=== PATIENT | female | born 1965 | race Caucasian/White ===

== ENCOUNTER 2017-01-23 05:35 | Inpatient (IN) | payer OTHER, BC ==
[2017-01-06 13:01] VITALS: BMI 55.0
--- NOTE | 2017-01-06 13:29 | PAT Medication Instructions ---
Service Date January 06, 2017. Current Home Medication List Cyclobenzaprine Hcl (Flexeril), 10 MG PO DAILY PRN for muscle spasms Ibuprofen (Advil), 200-800 MG PO UD PRN for Pain Multiple Minerals W/ Vitamins (Citracal Plus), Unknown Dose PO UD Multivitamin (Multivitamin), 1 TAB PO QAM Tramadol (Ultram), 50 MG PO Q8H PRN for Pain Medication Instructions For Your Scheduled Surgery Ibuprofen (Advil), 200-800 MG PO UD PRN for Pain (patient will check with surgeon for instructions) - Hold the following medications the morning of surgery: Multiple Minerals W/ Vitamins (Citracal Plus), Unknown Dose PO UD Multivitamin (Multivitamin), 1 TAB PO QAM Cyclobenzaprine Hcl (Flexeril), 10 MG PO DAILY PRN for muscle spasms - Take the following medications the morning of surgery with a sip of water: Tramadol (Ultram), 50 MG PO Q8H PRN for Pain (can take up to four hours prior to surgery if needed) - Take the following medications as scheduled the night before surgery: Tramadol (Ultram), 50 MG PO Q8H PRN for Pain Cyclobenzaprine Hcl (Flexeril), 10 MG PO DAILY PRN for muscle spasms If you have any questions please call us at [phone] or [phone] ( Kitty) or [phone]
[2017-01-06 14:11] LABS: BASO % 0.3 %; BASO ABS # 0.02 K/uL (0-0.2); COMPLETE YES; EOS % 0.5 %; HEMATOCRIT 37.8 % (37-47); IG% 0.2 %; LYMPH % 32.2 %; LYMPH ABS # 1.93 K/uL (1.2-3.4); MEAN CELL VOLUME 87.1 fL (80-100); MEAN CORPUSCULAR HEMOGLOBIN 27.4 pg (25-34); MEAN CORPUSCULAR HGB CONC 31.5 g/dl (32-36); MEAN PLATELET VOLUME 9.2 fL (7.4-10.4); MONO % 10.2 %; NEUT % 56.6 %; PLATELET COUNT 237 K/uL (130-400); RED BLOOD COUNT 4.34 M/uL (4.2-5.4); WHITE BLOOD COUNT 5.99 K/uL (4.8-10.8)
[2017-01-06 14:12] LABS: URINE APPEARANCE CLEAR (CLEAR); URINE BILIRUBIN NEG (NEG); URINE COLOR YELLOW; URINE NITRITE NEG (NEG); URINE PH 6.5 (4.5-7.5); URINE SPECIFIC GRAVITY 1.009 (1.000-1.030); UROBILINOGEN NEG (NEG)
[2017-01-06 14:17] LABS: MANUAL MICROSCOPIC REQUIRED? NO; REVIEW REQ? NO
[2017-01-06 14:23] LABS: BUN/CREATININE RATIO 19.7 (10-20); CALCIUM 9.1 mg/dl (8.5-10.1); CREATININE 0.72 mg/dl (0.60-1.20); POTASSIUM 4.9 mmol/L (3.5-5.1)
--- NOTE | 2017-01-06 14:33 | DIAGNOSTIC IMAGING REPORT ---
CHEST PREADMISSION(PA/LAT) CLINICAL HISTORY: PAT preoperative evaluation COMPARISON STUDY: No previous studies for comparison. FINDINGS: The bones soft tissues and hemidiaphragms are normal. The cardiomediastinal silhouette is normal. The lungs are clear. The pulmonary vasculature is normal. IMPRESSION: Negative chest. Electronically signed by: Jem Rodríguez M.D. 01/06/2017 2:31 PM Dictated Date/Time: 01/06/2017 2:29 PM
[~2017-01-23] VITALS: Ht 157.5 cm; Wt 137.0 kg
[2017-01-23] VITALS (10 sets, daily range): BP systolic 102–154; BP diastolic 62–92; PULSE 65–92; TEMP 36.3–36.9; O2SAT 93–100; Ht 157.5 cm; Wt 137.0 kg
[~2017-01-23 05:35] MED LIST: CYCL10TA6 PO; IBUP-1050 PO; MULT-506 PO; MULT-663 PO; TRAM-10 PO
[2017-01-23] MEDS ORDERED: ACET-1256 PO (05:59)
[2017-01-23] MEDS ORDERED: LACTATED RINGER'S 1000ML 1,000 ML IV SCH (06:00)
[2017-01-23] MEDS ORDERED: CEFAZOLIN 3000 MG/65 ML D5W IV SCH (06:00)
[2017-01-23] MEDS ORDERED: FENTANYL CITRATE INJ 50 MCG/1 ML 2 ML VIAL ONE ×2 (06:32→07:49)
[2017-01-23] MEDS ORDERED: MIDAZOLAM HCL 1 MG/ML 2ML VIAL ONE (06:32)
[2017-01-23] MEDS ORDERED: BUPIVACAINE/EPINEPHRINE 0.5% MPF 1:200,000 30 ML VIAL ONE (06:53)
[2017-01-23] MEDS ORDERED: BACITRACIN 50000 UNIT VIAL ONE (06:53)
[2017-01-23] MEDS ORDERED: SODIUM CHLORIDE 0.9% PF 50 ML VIAL ONE (06:53)
--- NOTE | 2017-01-23 07:20 | History & Physical Bridge Note ---
H&P Re-Evaluation Bridge Note: I have examined the patient, reviewed the History & Physical and in the interval since the performance of the History & Physical I have noted the following changes of clinical significance: No changes noted
--- NOTE | 2017-01-23 07:21 | History and Physical ---
History & Physical Date Jan 23, 2017. Chief Complaint back and leg pain History of Present Illness The patient is a 51 year old female with complaints of Additional History Hepatic Disease: No Endocrine Disorder: No Kidney Disease: No Hypertension: No Heart Disease: No Bleeding Tendencies: No Infectious Diseases: No Allergies Coded Allergies: Codeine (Verified Adverse Reaction, Unknown, lip numbness/confusion, ) Home Medications Scheduled Multiple Minerals W/ Vitamins (Citracal Plus), Unknown Dose PO UD Multivitamin (Multivitamin), 1 TAB PO QAM Scheduled PRN Acetaminophen (Tylenol), 2 TAB PO Q6 PRN for Pain Cyclobenzaprine Hcl (Flexeril), 10 MG PO DAILY PRN for muscle spasms Ibuprofen (Advil), 200-800 MG PO UD PRN for Pain Tramadol (Ultram), 50 MG PO Q8H PRN for Pain Physical Examination Skin: warm/dry, no rash Eyes: normal inspection, EOMI, sclerae normal ENT: normal ENT inspection, pharynx normal Head: normocephalic, atraumatic Neck: supple, no adenopathy, trachea midline Respiratory/Chest: lungs clear, normal breath sounds, no respiratory distress Cardiovascular: regular rate, rhythm, no edema, no murmur Abdomen / GI: normal bowel sounds, non tender Back: normal inspection Extremities: normal inspection, normal range of motion Neurologic/Psych: no motor/sensory deficits, alert, normal reflexes, oriented x 3 Diagnosis lumbar stenosis Plan of Treatment decompression fusion L4-5
[2017-01-23] MEDS ORDERED: MEPERIDINE HCL 25 MG/ML CARP IV PRN (07:30)
[2017-01-23] MEDS ORDERED: ONDANSETRON INJ 2 MG/ML 2 ML VIAL IV PRN ×2 (07:30→09:30)
[2017-01-23] MEDS ORDERED: ATROPINE SULFATE 0.1 MG/ML 5ML SYR IV PRN (07:30)
[2017-01-23] MEDS ORDERED: FLUMAZENIL 0.1 MG/1 ML 10 ML VIAL IV PRN (07:30)
[2017-01-23] MEDS ORDERED: NALOXONE HCL 0.4 MG/1 ML VIAL/CARP IV PRN ×3 (07:30→09:30)
[2017-01-23] MEDS ORDERED: EpHEDrine SULFATE INJ 50 MG/ML AMP IV PRN (07:30)
[2017-01-23] MEDS ORDERED: LABETALOL HCL IV 5 MG/ML 20ML IV PRN (07:30)
[2017-01-23] MEDS ORDERED: HYDROmorphone INJ 2 MG/ML SYR/VIAL IV PRN (07:30)
[2017-01-23] MEDS ORDERED: PHENYLEPHRINE 100MCG/ML 5ML SYR IV PRN (07:30)
[2017-01-23] MEDS ORDERED: HYDROmorphone INJ 2 MG/ML SYR/VIAL ONE ×2 (07:49→09:14)
[2017-01-23] MEDS ORDERED: FLOSEAL HEMOSTATIC MATRIX 10ML TOP ONE (09:01)
[2017-01-23] MEDS ORDERED: PROPOFOL IV EMULSION 10 MG/ML 20 ML VIAL IV ONE (09:10)
[2017-01-23] MEDS ORDERED: DEXAMETHASONE SOD INJ 4 MG/ML VIAL ONE (09:10)
[2017-01-23] MEDS ORDERED: ROCURONIUM BROMIDE 10 MG/ML 5 ML VIAL ONE (09:10)
[2017-01-23] MEDS ORDERED: LIDOCAINE HCL 2% 2 ML VIAL (20MG/ML) ONE (09:10)
[2017-01-23] MEDS ORDERED: PHENYLEPHRINE 100MCG/ML 5ML SYR ONE (09:10)
[2017-01-23] MEDS ORDERED: KETOROLAC TROMETHAMINE 30 MG/ML VIAL ONE (09:16)
[2017-01-23] MEDS ORDERED: NEOSTIGMINE METHYLSULFATE 1 MG/ML 10ML VIAL ONE (09:16)
[2017-01-23] MEDS ORDERED: GLYCOPYRROLATE INJ 0.2 MG/ML VIAL ONE (09:16)
[2017-01-23] MEDS ORDERED: SODIUM CHLORIDE 0.9% 1000ML 1,000 ML IV SCH (09:16)
--- NOTE | 2017-01-23 09:16 | [facility] Operative Report ---
Operative Report Operative Date Jan 23, 2017. Pre-Operative Diagnosis Lumbar stenosis L4-5 Post-Operative Diagnosis same Procedure(s) Performed tlif Surgeon Dr. Caden Berger Polisher Eyeglass Frames Surgeon(s) Ivy Bhakta PA-C Estimated Blood Loss 250ml Findings stenosis Specimens None per surgeon I attest to the content of the Intraoperative Record and any orders documented therein. Any exceptions are noted below.
[2017-01-23] MEDS ORDERED: HYDROmorphone HCL 0.5MG/ML 50 ML CASSETTE ONE (09:27)
[2017-01-23] MEDS ORDERED: DO NOT ADMINISTER FLU VACCINE PRN ×3 (09:30)
[2017-01-23] MEDS ORDERED: ACETAMINOPHEN 500 MG TAB PO PRN (09:30)
[2017-01-23] MEDS ORDERED: LORAZEPAM INJ 0.5 MG in SYRINGE 0 ML IV PRN (09:30)
[2017-01-23] MEDS ORDERED: BISACODYL 10 MG SUPP PR PRN (09:30)
[2017-01-23] MEDS: FENTANYL CITRATE INJ 50 MCG/1 ML 2 ML VIAL IV PRN ×4 (09:30→09:45)
[2017-01-23] MEDS ORDERED: LORAZEPAM 0.5 MG TAB PO PRN (09:30)
[2017-01-23] MEDS ORDERED: hydrOXYzine HCL 25 MG TAB PO PRN (09:30)
[2017-01-23] MEDS ORDERED: MAGNESIUM HYDROXIDE SUSP 30 ML UDC PO PRN (09:30)
[2017-01-23] MEDS ORDERED: ALUMINUM/MAGNESIUM SUSP 30 ML UDC PO PRN (09:30)
[2017-01-23] MEDS ORDERED: ACETAMINOPHEN IV 100 ML IV PRN (09:30)
[2017-01-23] MEDS ORDERED: TRAMADOL HCL 50 MG TAB PO PRN (09:30)
[2017-01-23] MEDS ORDERED: SOD PHOSPHATE/SOD BIPHOSPHATE ENEMA 132 ML BTL PR PRN (09:30)
[2017-01-23] MEDS ORDERED: METOCLOPRAMIDE HCL INJ 5 MG/ML 2 ML VIAL IV PRN (09:30)
[2017-01-23] MEDS ORDERED: DO NOT ADMINISTER PNEUMOCOCCAL VACCINE PRN ×2 (09:30)
[2017-01-23] MEDS ORDERED: PROMETHAZINE HCL INJ 12.5 MG in SODIUM CHLORIDE 0.9% 50ML 50 ML IV PRN (09:30)
--- NOTE | 2017-01-23 09:35 | DIAGNOSTIC IMAGING REPORT ---
LUMBAR SPINE, INTRAOPERATIVE FLUOROSCOPY HISTORY: L4-5 decompression and fusion. FLUOROSCOPY TIME: 21 seconds. FINDINGS: Intraoperative fluoroscopy was provided for the lumbar spine. 2 fluoroscopic spot images were obtained. Posterior decompression fusion at L4-L5 with screws and rods. The hardware is intact. IMPRESSION: Fluoroscopy provided for a L4-L5 posterior decompression and fusion. Electronically signed by: Scar Craig M.D. 01/23/2017 9:34 AM Dictated Date/Time: 01/23/2017 9:33 AM
--- NOTE | 2017-01-23 10:27 | Anesthesiology Progress Note ---
Anesthesia Post Op Note Date & Time Jan 23, 2017 at 10:27 Vital Signs Pain Intensity: 3 Vital Signs Past 12 Hours Date Time Temp Pulse Resp B/P (MAP) Pulse Ox O2 Delivery O2 Flow Rate FiO2 01/23/17 10:15 63 14 130/76 100 Nasal Cannula 4 01/23/17 10:05 36.0 81 19 123/80 100 Nasal Cannula 4 01/23/17 09:55 74 18 133/73 100 Nasal Cannula 4 01/23/17 09:45 83 18 117/83 100 Mask 10 01/23/17 09:35 93 14 114/73 100 Mask 10 01/23/17 09:25 36.0 93 12 141/82 100 Mask 10 01/23/17 06:01 36.6 77 18 132/92 98 Room Air Notes Mental Status: alert / awake / arousable, participated in evaluation Pt Amnestic to Procedure: Yes Nausea / Vomiting: adequately controlled Pain: adequately controlled Airway Patency, RR, SpO2: stable & adequate BP & HR: stable & adequate Hydration State: stable & adequate Anesthetic Complications: no major complications apparent
[2017-01-23] MEDS: HYDROmorphone HCL 0.5MG/ML 50 ML CASSETTE IV PRN ×3 (10:38→22:54)
--- NOTE | 2017-01-23 11:00 | OPERATIVE REPORT ---
DATE OF OPERATION: 01/23/2017 PREOPERATIVE DIAGNOSES: Spinal stenosis, spondylolisthesis L4-L5. POSTOPERATIVE DIAGNOSES: Same. PROCEDURE PERFORMED: 1. Lumbar decompression, medial facetectomy and foraminotomies L3-L4, L4-L5. 2. Posterior spinal fusion L4-L5. 3. Placement posterior instrumentation using Orthros rods and screws L4-L5. 4. Interbody fusion L4-L5. 5. Placement of PEEK cage 12 x 22 mm at L4-L5. 6. Placement of locally harvested morcellized autograft in posterior gutters. 7. Placement of Infuse collagen sponge combined with Mastergraft in the posterior gutters and Courtney bone graft in the interbody space. SURGEON: Dr. Caden Berger. COLOR WORKER: Ivy Bhakta PA-C. Due to the complex nature of the procedure, the entire surgery was performed with the medical office assistant of DECLAN Mahoney. The emergency veterinary assistant, under direct supervision, was involved in the actual performance of all aspects of the surgical procedure including hemostasis, tissue retraction and incision, instrument management, patient positioning, and wound closure. ANESTHESIA: General. DISPOSITION: The patient awakened and taken to PACU in stable condition. HISTORY OF PATIENT'S PROBLEMS: This is a 51-year-old female who presents with above-mentioned diagnosis. After failing an extensive course of nonoperative care, elected to undergo the above-mentioned procedure. Risks, benefits, pros, cons, and alternatives were outlined in detail preoperatively. DESCRIPTION OF PROCEDURE: The patient was met with preoperatively, the case discussed and all questions were addressed. At that point the patient was taken back to operative suite and after undergoing successful general intubation by the department of anesthesia was placed in prone position on Dillan table atop Ruslan frame. All bony prominences were well padded and the eyes were inspected to ensure there was no external pressure placed upon them. At this point, the lumbar spine was prepped and draped in normal sterile fashion. Sharp dissection with the assistance of Bovie cautery performed down to and exposing the lamina and transverse processes of L4-L5 bilaterally. From a caudal to cephalad fashion, complete laminectomy of L4, partial laminectomy of L3 was performed to address severe lateral recess and foraminal stenosis at the L4, L5, L3, L4 levels. This did require removal of the medial facets at L3-L4, L4-L5 as well as foraminotomies bilaterally at L4-L5. After this was complete, pedicle screws were then placed in L4-L5 bilaterally with assistance of fluoroscopy and appropriate size jarrod provisionally placed through a transforaminal approach on the right, a complete discectomy of L4-L5 was performed, endplates curetted to bone and a 12 x 22 mm PEEK cage filled with Courtney bone grafting tapped into position. The rods were then compressed, locked into final position bilaterally and transverse processes of L4-L5 burred to subcortical bleeding bone. Infuse collagen sponge combined with Mastergraft and locally harvested morselized autograft was placed in the posterolateral gutters. A 7 flat CRYSTAL drain was inserted. Incision was closed with 1-0 Vicryl in the fascia, 2-0 Vicryl subcutaneously, 4-0 Monocryl for final skin closure. Steri-Strips and sterile dressing placed. The patient was awakened and taken to PACU in stable condition. I attest to the content of the Intraoperative Record and any orders documented therein. Any exception s are noted below.
[2017-01-23] MEDS: SODIUM CHLORIDE 0.9% 1000ML 1,000 ML IV SCH ×3 (11:01→22:49)
[2017-01-23] MEDS: DEXAMETHASONE INJ 6 MG in SYRINGE 0 ML IV SCH ×2 (14:56→21:27)
[2017-01-23] MEDS: CEFAZOLIN IV 3,000 MG in DEXTROSE 5% 50ML 50 ML IV SCH (15:40)
[2017-01-23] MEDS ORDERED: FAMOTIDINE 20 MG TAB PO PRN (21:00)
[2017-01-23] MEDS: DOCUSATE SODIUM/SENNA 50/8.6MG TAB PO SCH (21:27)
[2017-01-24] VITALS (11 sets, daily range): BP systolic 112–141; BP diastolic 69–87; PULSE 57–90; TEMP 36.4–37.1; O2SAT 94–100
[2017-01-24] MEDS: CEFAZOLIN IV 3,000 MG in DEXTROSE 5% 50ML 50 ML IV SCH (00:22)
[2017-01-24] MEDS: SODIUM CHLORIDE 0.9% 1000ML 1,000 ML IV SCH (04:25)
[2017-01-24] MEDS: DEXAMETHASONE INJ 6 MG in SYRINGE 0 ML IV SCH (05:56)
[2017-01-24] MEDS ORDERED: HYDROmorphone INJ 1 MG/ML SYR IV PRN (06:00)
[2017-01-24] MEDS ORDERED: DC PCA SCH (06:00)
[2017-01-24] MEDS ORDERED: NURSING DECISION MEDICATION ORDER SCH (06:30)
[2017-01-24 06:54] LABS: COMPLETE YES; HEMATOCRIT 38.3 % (37-47); IG% 0.2 %; LYMPH % 10.2 %; LYMPH ABS # 0.89 K/uL (1.2-3.4); MEAN CELL VOLUME 87.6 fL (80-100); MEAN CORPUSCULAR HEMOGLOBIN 28.4 pg (25-34); MEAN CORPUSCULAR HGB CONC 32.4 g/dl (32-36); MEAN PLATELET VOLUME 8.8 fL (7.4-10.4); MONO % 3.8 %; NEUT % 85.8 %; PLATELET COUNT 226 K/uL (130-400); RED BLOOD COUNT 4.37 M/uL (4.2-5.4); WHITE BLOOD COUNT 8.69 K/uL (4.8-10.8)
[2017-01-24 07:31] LABS: BUN/CREATININE RATIO 14.2 (10-20); CALCIUM 8.7 mg/dl (8.5-10.1); CREATININE 0.69 mg/dl (0.60-1.20); POTASSIUM 5.5 mmol/L (3.5-5.1)
[2017-01-24] MEDS ORDERED: RXC5 PO (08:00)
--- NOTE | 2017-01-24 08:01 | Discharge Instructions ---
Discharge Instructions Date of Service Jan 24, 2017. Admission Reason for Admission: Spinal Stenosis Discharge Discharge Diagnosis / Problem: stenosis Discharge Goals Goal(s): Improve function Activity Recommendations Activity Limitations: per Instructions/Follow-up section . Instructions / Follow-Up Instructions / Follow-Up ACTIVITY RECOMMENDATIONS: SELF CARE INSTRUCTIONS AFTER THORACIC/LUMBAR FUSIONS 1. You may walk to your tolerance. It is good exercise for your legs and back. Expect some back and intermittent leg aches and pains. 2. You may perform "counter-top" level activities (make a sandwich, josue with a project, etc.). 3. No bending or lifting of more than 10 pounds or back twisting of any nature (roll like a log when turning in bed). 4. You may ride in a car for 20-30 minutes at a time. No driving until after your first visit with your doctor. 5. Frequent changes of position and restricting sitting to 30 minutes at a time will help limit the amount of back spasms and stiffness you may experience. 6. You may discontinue the use of ambulatory aids (cane, crutches, etc.) once your strength and confidence allow. 7. You may siding coreboard inspector the shower and let water strike your incision when you arrive home at least once daily. Do not take a tub bath, sit in a hot tub or go into a swimming pool until after your first recheck in the office. SPECIAL CARE INSTRUCTIONS: VERY IMPORTANT TO READ AND REVIEW A. Your surgical incision has been closed with a cosmetic suture under the skin that will dissolve in about 6 weeks. In 14 days, you can use a pair of clean scissors and cut the suture that is left outside of the skin at the ends of your incision. 1. The small skin tapes can be removed 7 days after surgery if they have not fallen off by that point. 2. You may keep the wound open to air as much as possible to promote healing after post-op day number 5 unless told otherwise by your doctor. 3. If you think the wound looks like it is becoming infected (redness or worsening drainage) and/or you are experiencing fever, chill or worsening back pain and muscle spasms, contact the office so that we may evaluate you as soon as possible. B. Complications are uncommon, but please contact us if you have any signs or symptoms of: 1. wound infection (fever higher than 102.5 degrees F, redness, separation of wound, drainage, or increasing pain from the incision) 2. blood clots in legs (pain, swelling, redness and warmth in legs) 3. urinary tract infection (fever higher than 102.5 degrees F, burning upon urination or increased frequency of urination) 4. nerve problems (inability to walk on your toes or heels, numbness, loss of bowel or bladder control) 5. any other symptoms that concern you C. Please call the office at if you have any concerns or questions about your operation or recovery. D. No smoking! Smoking drastically decreases the chance of a solid fusion. E. Do not take any anti-inflammatory medications (Indocin, Advil, Motrin, Aspirin, Naprosyn, etc.) as these may inhibit the chance of a solid fusion. Tylenol is okay to take for pain. MANAGING PAIN AFTER SPINAL SURGERY 1. Narcotic medication is intended for short-term use and will be provided for surgical pain. Surgical pain usually lasts for a period of 4-6 weeks. Narcotic medication includes Percocet, Vicodin, Darvocet, Tylenol #3 or Lortab. 2. Longer-term pain is more appropriately treated with non-narcotic medication such as Tylenol ES. 3. Muscle spasm is not appropriately treated with narcotics. Muscle relaxers such as Soma, Flexeril or Skelaxin can be used along with Tylenol ES. 4. Remember that we all live with some "aches and pains". This is not unusual or uncommon after an injury or as we get older. a. Back pain is expected and may include muscle spasms for 4 to 6 weeks after surgery. The pain should gradually improve. If the pain worsens for no apparent reason, please contact the office. b. Intermittent leg pain may also be experienced and should not be concerned about unless it worsens for no apparent reason. If so, please contact the office. 5. We will provide appropriate medication within the normal guidelines of their prescribed use. We will also be very cautious and aware of potential abuse and extended duration of patients' medication needs. a. Pain medications are for your comfort and to assist with sleep and rest so that the tissue can heal. They are not provided in order to return to normal activity and should not be used through the day. To do so or worsening pain at night can result from ongoing tissue damage and development of tolerance to the prescribed medicine. 6. Please allow 2-3 days to process refills. Prescriptions will not be mailed but must be picked up at the office. FOLLOW UP VISIT: Keep your scheduled follow-up appointment. Any questions, please call the office at . Current Hospital Diet Patient's current hospital diet: Regular Diet Discharge Diet Recommended Diet: Regular Diet Procedures Procedures Performed: L4-L5 Lumbar Decompression/Laminectomy, Discectomy, Posterior Spinal Fusion, Instrumentation, Interbody Fusion With Application of Interbody Cage at L4-L5, and Posterolateral Gutter Fusion; Application of Bone Morphogenetic Protein; Application of Courtney Pending Studies Studies pending at discharge: no Medical Emergencies . Who to Call and When: Medical Emergencies: If at any time you feel your situation is an emergency, please call 911 immediately. . Non-Emergent Contact Non-Emergency issues call your: Primary Care Provider . "Provider Documentation" section prepared by Caden Berger. . VTE Core Measure Inpt VTE Proph given/why not?: Norma Zhang, SCD's
--- NOTE | 2017-01-24 08:12 | PROGRESS NOTE ---
DATE: 01/24/2017 SUBJECTIVE: Postop day 1. Back pain controlled. Leg pain improved. Vital signs stable. T-max 36.5. CRYSTAL drained 60 mL. Hematocrit this a.m.is 12.4. OBJECTIVE: On exam, the patient is in chair at bedside. Has good strength to testing. Appears comfortable. ASSESSMENT: Status post lumbar decompression and fusion. PLAN: At this time, we will continue physical therapy, advance her bowel regimen and anticipate home tomorrow or the next day.
[2017-01-24] MEDS: OXYCODONE HCL IR 5 MG TAB (IMMEDIATE RELEASE) PO PRN ×3 (09:42→20:48)
[2017-01-24] MEDS: DOCUSATE SODIUM/SENNA 50/8.6MG TAB PO SCH (20:47)
[2017-01-25] MEDS: POLYETHYLENE (MIRALAX) 17 GM PACK PO SCH ×2 (05:19→12:00)
[2017-01-25] MEDS: OXYCODONE HCL IR 5 MG TAB (IMMEDIATE RELEASE) PO PRN ×2 (07:32→11:30)
[2017-01-25 07:36] VITALS: BP 124/78; PULSE 85; PULSE 94; TEMP 36.6; O2SAT 98
[2017-01-25 08:02] VITALS: O2SAT 98
[2017-01-25] MEDS ORDERED: NURSING DECISION MEDICATION ORDER SCH (12:15)
[2017-01-25 13:51] VITALS: BP 124/78; PULSE 85; TEMP 36.6; O2SAT 98
--- NOTE | 2017-01-25 15:54 | DISCHARGE SUMMARY ---
PRINCIPAL DIAGNOSIS: Spinal stenosis. HOSPITAL COURSE FOLLOWS: On January 23 the patient underwent lumbar decompression and fusion, tolerated this well and taken to the orthopedic floor postoperatively. Postop day #1, she was up and ambulatory, progressed nicely. Postop day #2, continued to do well. CRYSTAL drain decreased appropriately. Subsequently discharged home. Discharge orders and instructions found on the chart for further review.
== END 2017-01-25 14:05 | disposition home or self-care (01) | DRG 460 ==
LOC: C.ACU 05:35 → C.3E 07:22 → ENRESERV 09:47
PROVIDERS: ADMIT Orthopaedic Surgery Orthopaedic Surgery of the Spine; ATTEND Orthopaedic Surgery Orthopaedic Surgery of the Spine
PROC: 01NB0ZZ Release Lumbar Nerve, Open Approach (ICD-10-PCS; principal; 2017-01-23 07:45)
PROC: 0SG00AJ Fusion of Lumbar Vertebral Joint with Interbody Fusion Device, Posterior Approach, Anterior Column, Open Approach (ICD-10-PCS; principal; 2017-01-23 07:45)
PROC: 0ST20ZZ Resection of Lumbar Vertebral Disc, Open Approach (ICD-10-PCS; principal; 2017-01-23 07:45)
PROC: 0SG0071 Fusion of Lumbar Vertebral Joint with Autologous Tissue Substitute, Posterior Approach, Posterior Column, Open Approach (ICD-10-PCS; principal; 2017-01-23 07:45)
PROC: 3E0U0GB Introduction of Recombinant Bone Morphogenetic Protein into Joints, Open Approach (ICD-10-PCS; principal; 2017-01-23 07:45)
DX: M48.06 Spinal stenosis, lumbar region (principal); Z68.43 Body mass index [BMI] 50.0-59.9, adult; M43.16 Spondylolisthesis, lumbar region; E66.01 Morbid (severe) obesity due to excess calories; Z79.891 Long term (current) use of opiate analgesic; Z79.899 Other long term (current) drug therapy

== ENCOUNTER → 2017-10-18 | Day surgery (SDC) | payer OTHER, BC ==
[~2017-10-18] VITALS: Ht 157.5 cm; Wt 134.0 kg
[2017-10-18] VITALS (12 sets, daily range): BP systolic 86–134; BP diastolic 43–72; PULSE 69–94; TEMP 36.4–36.9; O2SAT 95–100; Ht 157.5 cm; Wt 134.0 kg
[~2017-10-18] MED LIST changes: +ACET-1256 PO; +ACETAMINOPHEN 500 MG TAB PO PRN; -IBUP-1050 PO; +RXC5 PO
--- NOTE | 2017-10-18 09:22 | Discharge Instructions ---
Discharge Instructions Procedure Procedure Date: Oct 18, 2017. Reason for visit: W/Flex & Ext, Spondylosis. Discharge Discharge Date: Oct 18, 2017. Discharge Diagnosis: Post Myelogram Instructions Activity Recommendations: 1 Day-May resume regular activity, 48 Hours of decreased exertion, 1 Day with no exercise/sex/sports, 1 Day with no driving/ machine use Return to School/Work: no limitations Recommended Home Diet: Resume Previous Diet Provider Instructions: post myelogram Lumbar Puncture performed with Fluoroscopic guidance [L45 ] level with [22 ] needle. No complications. Allergies Coded Allergies: Codeine (Verified Adverse Reaction, Unknown, lip numbness/confusion, ) Chio Tamayo Recommendations: Call your doctor if: * Temperature above 101 degrees * Pain not relieved by pain medicine ordered * There is increased drainage or redness from any incision * You have any unanswered questions or concerns. Your Doctors Instructions noted above were prepared by provider Jem Rodríguez. Patient Signature Section: Patient Instructions Signature Page Shante Vaughn Patient (or Guardian) Signature/Date: I have read and understand the instructions given to me by my caregivers. Caregiver/RN/Doctor Signature/Date: The above-named patient and/or guardian has received patient instructions on this date. + Original Patient Signature Page (only) stays with chart. Please make copy for patient.
--- NOTE | 2017-10-18 09:29 | DIAGNOSTIC IMAGING REPORT ---
MYELOGRAM,SUPER/INTER LUMBAR CLINICAL HISTORY: SONDYLOLISTKHESIS LUMBAR REGION pain. Neuropathy. TECHNIQUE: Following explanation of the procedure and possible complications, fluoroscopic assistance was provided to place a 22-gauge needle to the L4 level of the lumbar spine. COMPARISON STUDY: None FINDINGS: Successful injection of 10 cc of ionic contrast to the L4 level of the lumbar region. Images obtained post procedure demonstrate evidence for a posterior laminectomy and fusion at L4-L5. Disc spacer is present. Findings of a minimal grade 1 anterolisthesis of L4 and L5. There is moderate degenerative disc changes throughout. Based on AP projections appears to be at least a mild degree of transverse narrowing of the spinal canal. There is suboptimal opacification of the upper aspect of the lumbar region possibly secondary to posterior extra dural defects at L2-L3 and L1-L2. IMPRESSION: 1. Successful lumbar myelogram. 2. Multilevel spondylosis with extradural defects at virtually all levels of lumbar region. 3. CT is pending. 4. Patient is transferred to observation status The above report was generated using voice recognition software. It may contain grammatical, syntax or spelling errors. Electronically signed by: Jem Rodríguez M.D. 10/18/2017 9:27 AM Dictated Date/Time: 10/18/2017 9:24 AM
--- NOTE | 2017-10-18 09:44 | DIAGNOSTIC IMAGING REPORT ---
LUMBAR SPINE WITH CLINICAL HISTORY: MYELOGRAM L-SPINE lumbar radiculopathy. Pain. TECHNIQUE: Transaxial acquisition with multi axial reformatted images. COMPARISON STUDY: None FINDINGS: Findings consistent with operative laminectomy and fusion at L4-L5. The hardware in position is intact. A slight grade 1 anterolisthesis of L4 on L5 which is considered pre-existing. Considerable degenerative disc change throughout the entire lumbar region with vacuum discs at L1-L2 and L2-L3. Disc spacer is present at L4-L5. This appears to be positioned appropriately L1-L2:. L1-L2: Mild broad-based disc herniation with small posterior osteophytic change. Moderate impact upon the anterior aspect of the thecal sac. Rather significant narrowing of the neuroforamina bilaterally. L2-L3: Moderate multifactorial narrowing of the spinal canal. Significant narrowing of the right and to a lesser extent left neural foramina. Degenerative changes of posterior elements. L3-L4. Mild transverse narrowing of the spinal canal secondary to hypertrophic change of the posterior facets. Mild broad-based disc bulge. Minimal narrowing of the neuroforamina bilaterally. L4-L5 operative changes of a prior laminectomy and fusion. Broad-based bulging disc. Mild narrowing of the neuroforamina bilaterally. No major narrowing of the spinal canal. L5-S1 minimal broad-based disc bulge. No significant impact upon the thecal sac. Neuroforamina are patent bilaterally. IMPRESSION: 1. Operative changes consistent with a posterior laminectomy and fusion at L4-L5. 2. Moderate multifactorial narrowing of the spinal canal at L2-L3 with significant narrowing of the right and to lesser extent left neural foramina. 3. Broad-based disc herniation L1-L2 with significant narrowing of the neuroforamina bilaterally primarily at osteophytic bases. 4. Mild transverse narrowing of the spinal canal L3-L4 associated with a mild broad-based disc bulge. 5. Generalized degenerative disc change throughout. The above report was generated using voice recognition software. It may contain grammatical, syntax or spelling errors. Electronically signed by: Jem Rodríguez M.D. 10/18/2017 9:43 AM Dictated Date/Time: 10/18/2017 9:29 AM
== END | disposition home or self-care (01) ==
LOC: C.ACU 07:06
PROVIDERS: ATTEND Physician Assistant
DX: M43.16 Spondylolisthesis, lumbar region (principal)